=== PATIENT | female | born 1950 | race Caucasian/White ===

== ENCOUNTER 2020-03-02 14:03 | Emergency (ER) | payer MEDICARE, MEDICAID ==
[~2020-03-02] VITALS: Ht 157.5 cm; Wt 87.0 kg
[~2020-03-02 14:03] MED LIST: LEVPEN; [UNRECOGNIZED DRUG - REMARK]
[2020-03-02] MEDS ORDERED: ONDANSETRON HCL 4MG/2ML INJ IV STA (15:03)
[2020-03-02] MEDS ORDERED: SODIUM CHLORIDE 0.9% 1,000 ML IV ONE (15:03)
[2020-03-02] MEDS ORDERED: MORPHINE SULFATE 4 MG/ML CPJ (NOT FOR IM USE) IV STA (15:03)
[2020-03-02 15:37] LABS: BASOPHILS % 0.7 % (0.0-2.0); CHLORIDE 107 mEq/L (98-107); EOSINOPHILS % 2.2 % (0.0-5.0); HEMATOCRIT. 36.4 % (36.0-48.0); HEMOGLOBIN. 12.6 g/dL (12.0-16.0); LYMPHOCYTES % 29.9 % (20.0-50.0); MEAN CORPUSCULAR HEMOGLOBIN 31.8 pg (28.0-32.0); MEAN CORPUSCULAR VOLUME 91.6 fL (81.0-99.0); MEAN PLATELET VOLUME 8.8 fl (7.4-10.4); MONOCYTES % 6.5 % (2.0-8.0); NEUTROPHILS % 60.7 % (40.0-76.0); PLATELET 216 x1000/uL (130-400); RED BLOOD CELL COUNT 3.97 mill/uL (4.2-5.4); RED CELL DISTRIBUTION WIDTH 12.8 % (11.6-14.6)
[2020-03-02] MEDS ORDERED: IOHEXOL-350 100 ML BOTTLE ONE (17:53)
[2020-03-02 18:38] VITALS: BP 150/64
== END 2020-03-02 18:50 | disposition home or self-care (01) ==
LOC: ER 14:03
DX: S82.041A Displaced comminuted fracture of right patella, initial encounter for closed fracture (principal); E11.9 Type 2 diabetes mellitus without complications; F17.200 Nicotine dependence, unspecified, uncomplicated; W01.0XXA Fall on same level from slipping, tripping and stumbling without subsequent striking against object, initial encounter; Y93.9 Activity, unspecified; Y92.9 Unspecified place or not applicable
CPT/HCPCS: 36415; 73560; 75635; 80053; 85025; 96374; 96375; 99285; J2270; J2405; J7030; L1830; Q9967

== ENCOUNTER 2025-05-17 12:32 | Emergency (ER) | payer MEDICARE, MEDICAID ==
[~2025-05-17] VITALS: Ht 157.5 cm; Wt 75.0 kg
[2025-05-17 12:36] VITALS: TEMP 36.9; O2SAT 98
[2025-05-17 13:29] VITALS: TEMP 98.4
[2025-05-17] MEDS: ACETAMINOPHEN 325MG TABLET PO ONE (13:29)
[2025-05-17] MEDS ORDERED: CYCL10TA21 MT (14:20)
[2025-05-17] MEDS ORDERED: IBUP-2029 MT (14:20)
[2025-05-17 15:16] VITALS: BP 161/55; PULSE 74; RESP 16; O2SAT 96
== END 2025-05-17 15:18 | disposition home or self-care (01) ==
LOC: ER 12:45
DX: S13.4XXA Sprain of ligaments of cervical spine, initial encounter (principal); E11.9 Type 2 diabetes mellitus without complications; Z79.899 Other long term (current) drug therapy; W19.XXXA Unspecified fall, initial encounter; Y93.89 Activity, other specified; Y92.89 Other specified places as the place of occurrence of the external cause; Y99.8 Other external cause status
CPT/HCPCS: 99284